=== PATIENT | male | born 1985 | race Caucasian/White ===

== ENCOUNTER 2024-10-03 09:07 | Outpatient (CLI) | payer OTHER | END 2024-10-03 23:59 | disposition home or self-care (01) | LOC: MRI02 09:07 | PROVIDERS: ATTEND Physician Assistant Medical | DX: S13.9XXA Sprain of joints and ligaments of unspecified parts of neck, initial encounter (principal); S43.402A Unspecified sprain of left shoulder joint, initial encounter; S23.9XXA Sprain of unspecified parts of thorax, initial encounter; M75.52 Bursitis of left shoulder; M75.82 Other shoulder lesions, left shoulder; W11.XXXA Fall on and from ladder, initial encounter; Y93.89 Activity, other specified; Y92.89 Other specified places as the place of occurrence of the external cause; Y99.8 Other external cause status | CPT/HCPCS: 73221 ==

== ENCOUNTER 2025-02-15 10:43 | Emergency (ER) | payer OTHER ==
[~2025-02-15] VITALS: Ht 188 cm; Wt 77.9 kg
[2025-02-15 10:47] VITALS: TEMP 98.2
[2025-02-15] MEDS: pantoprazole 40 MG vial IV STA (11:03)
[2025-02-15 11:19] LABS: BASOPHILS # (AUTO) 0.1 X10'3 (0-0.2); BASOPHILS % (AUTO) 0.7 % (0-1); EOSINOPHILS # (AUTO) 0.5 X10'3 (0-0.9); HEMATOCRIT 43.9 % (42.0-52.0); HEMOGLOBIN 15.3 g/dl (14.0-17.9); LYMPHOCYTES % (AUTO) 21.8 % (21-51); MEAN CORPUSCULAR HGB CONC 34.8 g/dL (33.0-36.5); MEAN CORPUSCULAR VOLUME 89.1 FL (78-98); MEAN PLATELET VOLUME 8.7 FL (7.4-10.4); MONOCYTES # (AUTO) 0.7 X10'3 (0-0.9); MONOCYTES % (AUTO) 7.4 % (2-12); NEUTROPHILS # (AUTO) 5.9 X10'3 (1.8-7.7); NEUTROPHILS % (AUTO) 65.1 % (42-75); PLATELET COUNT 188 X10'3 (140-440); RED BLOOD COUNT 4.92 X10'6 (4.70-6.10)
[2025-02-15 11:19] LABS: BILIRUBIN,URINE NEGATIVE (Neg); CLARITY,URINE CLEAR (Clear); COLOR,URINE YELLOW (Yellow); GLUCOSE, URINE NEGATIVE (Neg); KETONES,URINE NEGATIVE (Neg); LEUKOCYTE ESTERASE ,URINE NEGATIVE (Neg); NITRITES, URINE NEGATIVE (Neg); OCCULT BLOOD,URINE NEGATIVE (Neg); PROTEIN,URINE NEGATIVE (Neg); UROBILINOGEN,URINE 0.2 E.U/dL (0.2-1.0)
[2025-02-15 11:25] LABS: UA COLLECTION TYPE CLN CATCH MIDSTREAM
[2025-02-15 11:44] LABS: ALANINE AMINOTRANSFERASE 21 U/L (12-78); ALBUMIN/GLOBULIN RATIO 1.3 (1.1-1.5); ALKALINE PHOSPHATASE 76 IU/L (46-116); ANION GAP 8 (8-16); ASPARTATE AMINO TRANSFERASE 8 U/L (10-37); BILIRUBIN,TOTAL 0.7 MG/DL (0.1-1.0); BLOOD UREA NITROGEN 11 MG/DL (7-18); BUN/CREATININE RATIO 11.2 (10.0-20.0); CALCIUM 8.8 MG/DL (8.5-10.1); CHLORIDE 103 MMOL/L (99-107); CREATININE 0.98 MG/DL (0.60-1.10); GLUCOSE 125 MG/DL (70-104); LIPASE 38 U/L (16-77); POTASSIUM 3.9 MMOL/L (3.5-5.1); SODIUM 143 MMOL/L (135-145); TOTAL CARBON DIOXIDE 32.2 MMOL/L (24-32); TOTAL PROTEIN 7.2 G/DL (6.4-8.2); eCRCL 114 ML/MIN; eGFR 86 ML/MIN
[2025-02-15] MEDS ORDERED: PANT-47 PO (12:03)
--- NOTE | 2025-02-15 12:03 | Physician Documentation ---
History of Present Illness Chief Complaint: Abdominal Pain Stated Complaint: ABD PAIN FOR MONTHS Time Seen by MD: 11:00 HPI Patient is here with a epigastric pain. Two weeks ago he had vomiting and diarrhea and that resolved. He has persistent pain in the epigastrium radiates posteriorly. It is a dull pain. He does not know the makes it better or worse. No longer has vomiting or diarrhea. Denies fever or chills no chest pain shortness a breath or any other symptoms. Medication Reconciliation Allergies: Coded Allergies: No Known Allergies (Unverified , 02/15/25) Physical Exam Vital Signs: Temperature: 98.2, Source: Temporal, Heart Rate: 71, Respiratory Rate: 18, BP: 134/86, Pulse Oximetry: 100, Weight: 77.900 Oxygen Flow Rate: 0 Physical Exam General: Awake and Alert, no acute distress. HEENT: Conjunctiva pink, Sclera clear, Mucus Membranes moist. Neck: Supple without masses and tenderness. Resp: Unlabored. Lungs clear to auscultation bilaterally. Heart: Regular Rate and rhythm, normal S1 and S2 without murmur, rub or gallop. Abdomen: Soft and mild tenderness in the epigastrium without rebound or guarding or peritoneal signs. Extremities: No cyanosis,clubbing or edema. Skin: Warm and Dry. Neuro: GCS 15; no focal deficits Progress Results/Orders Results/Orders Orders - NHAN CORTES MD Normal Saline 1000ml (Sodium Chloride 10 (02/15/25 11:05) Completed Orders - NHAN CORTES MD Urinalysis, Cult If Indicated (02/15/25 10:49) Cbc/Diff (02/15/25 10:49) Lipase (02/15/25 10:49) CMP (02/15/25 10:49) Pantoprazole 40mg Iv (Protonix 40mg Iv) (02/15/25 11:03) Ondansetron Inj. (Zofran 4mg/2ml Vial) (02/15/25 11:05) Acetaminophen 1,000mg/100ml Iv (Ofirmev (02/15/25 11:05) Vital Signs 02/15/25 10:47 Temp 98.2 Pulse 71 Resp 18 B/P (MAP) 134/86 Pulse Ox 100 O2 Flow Rate 0 Laboratory Tests Test 02/15/25 10:50 02/15/25 11:05 Urine Specimen Description Cln catch midstream Urine Color Yellow Urine Clarity Clear Urine pH 7.0 Urine Specific [place] 1.015 Urine Protein Negative Urine Glucose (UA) Negative Urine Ketones Negative Urine Occult Blood Negative Urine Nitrite Negative Urine Bilirubin Negative Urine Urobilinogen 0.2 Urine Leukocyte Esterase Negative Urine Culture Indicated Not ind Volume Urine Centrifuged 10 ml Urine Comment White Blood Count 9.0 Red Blood Count 4.92 Hemoglobin 15.3 Hematocrit 43.9 Mean Corpuscular Volume 89.1 Mean Corpuscular Hemoglobin 31.0 Mean Corpuscular Hemoglobin Concent 34.8 Red Cell Distribution Width 13.0 Platelet Count 188 Mean Platelet Volume 8.7 Neutrophils (%) (Auto) 65.1 Lymphocytes (%) (Auto) 21.8 Monocytes (%) (Auto) 7.4 Eosinophils (%) (Auto) 5.0 Basophils (%) (Auto) 0.7 Neutrophils # (Auto) 5.9 Lymphocytes # (Auto) 2.0 Monocytes # (Auto) 0.7 Eosinophils # (Auto) 0.5 Basophils # (Auto) 0.1 CBC Comment Sodium Level 143 Potassium Level 3.9 Chloride Level 103 Carbon Dioxide Level 32.2 H Anion Gap 8 Blood Urea Nitrogen 11 Creatinine 0.98 Estimated GFR/1.73 m2 86 BUN/Creatinine Ratio 11.2 Glucose Level 125 H Calcium Level 8.8 Total Bilirubin 0.7 Aspartate Amino Transf (AST/SGOT) 8 L Alanine Aminotransferase (ALT/SGPT) 21 Alkaline Phosphatase 76 Total Protein 7.2 Albumin 4.0 Globulin 3.2 Albumin/Globulin Ratio 1.3 Lipase 38 Chemistry Comments Medical Decision Making Findings Patient states that two weeks ago he had some vomiting and diarrhea and he said persistent epigastric pain since. He has a benign abdominal exam. His labs are all reassuring CBC CMP lipase urinalysis. That has given IV Protonix. I wrote a prescription for omeprazole patient will be discharged. Likely diagnosis at this time he has gastritis recommended he follow up with his PCP Departure Disposition: HOME / SELF CARE / HOMELESS Impression: Primary Impression: Acute gastritis Qualified Codes: K29.00 - Acute gastritis without bleeding Additional Impression: Abdominal pain Qualified Codes: R10.13 - Epigastric pain Condition: Stable Discharge Instructions: Gastritis, Adult Additional Instructions: Returned for worsening symptoms fever vomiting or any concerns. Follow up with your regular doctor. I would recommend a bland diet take the omeprazole daily. If your pain persists you may need further testing by your doctor as an outpat ient such as endoscopy. Referrals: NO PRIMARY CARE PROVIDER (PCP) Prescriptions Pantoprazole Sodium (PROTONIX tablet) 40 Mg Tablet.dr 1 TAB PO DAILY for 30 Days, #30 TAB 0 Refills Prov: NHAN CORTES MD 02/15/25 Education Educated: Patient Educated regarding: diagnosis, treatment, prognosis, need for follow up Signature Scribe Signature: no scribe Attestation: no scribe NHAN CORTES MD Feb 15, 2025 12:03
[2025-02-15] MEDS: acetaminophen 1,000mg/100ml IV 100 ML IV ONE (12:04)
[2025-02-15] MEDS: normal saline 1000ml 1,000 ML IV ONE (12:04)
[2025-02-15] MEDS: ondansetron/PF 4mg/2ml inj IV ONE (12:04)
[2025-02-15 13:03] VITALS: BP 126/71; PULSE 62; RESP 14; O2SAT 100
== END 2025-02-15 13:06 | disposition home or self-care (01) ==
LOC: ER 10:43
DX: K29.00 Acute gastritis without bleeding (principal)
CPT/HCPCS: 36415; 80053; 81003; 83690; 85025; 99283; J7030